=== PATIENT | male | born 1975 | race Caucasian/White ===

== ENCOUNTER 2017-11-06 05:48 | Emergency (ER) | payer SELFPAY ==
[2017-11-06 05:49] VITALS: BP 134/100; PULSE 83; RESP 18; TEMP 36.7; O2SAT 98; BMI 16.2
--- NOTE | 2017-11-06 06:00 | ED.VISSUMM ---
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 Patient states his symptoms began on Sunday. He states he had some chills and sweats. He became nauseated and had a few bouts of vomiting. He states since then has begun to have some loose watery diarrhea. He states he went to work last night. 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 He states because of his diarrhea, he was sent home and told to be evaluated in the emergency department. He states his fevers have resolved. He really has no abdominal pain. He denies any history of Crohn's disease or ulcerative colitis. He has taken Pepto-Bismol with little improvement. Physical Examination: Vital signs reviewed General: Well-nourished, well-developed Head: Normocephalic, atraumatic Eyes: Pupils equal and reactive, extraocular muscles intact Neck, supple, no lymphadenopathy Heart: Regular rate and rhythm Respiratory: No distress, clear bilaterally Abdomen: Soft, nontender, nondistended, no peritoneal signs Back: Nontender Extremities: Nontender, no edema, no cords Skin: Normal color no rash Neuro: Alert and oriented, no focal or lateralizing deficits Test Results: [] Emergency Department Course and Treatment: The patient has a benign abdomen. He has normal vital signs. He does admit to symptoms of gastroenteritis. I do not feel radiology or labs are necessary. Patient was treated with Imodium here. He will be dispensed both Imodium and Zofran for home for symptom control. As he does work in a food service technician industry, I will write him off work for 48 hours. The patient will be discharged home, return with any worsening symptoms. Treatment Plan: [] Disposition: Discharge Impression:. Gastroenteritis This note was generated with [employer] dictation software. It may contain incorrect words, spelling, and punctuation that were not noted in review of the chart prior to signing ED Disposition - Plan for ED Patient: Chief Complaint: General Illness Instructions: ED Food Poison Or Gastroenteritis Prescriptions: Loperamide [Imodium] 2 mg PO Q2H PRN PRN #30 cap PRN Reason: Diarrhea Ondansetron [Zofran Odt] 4 mg PO Q8H PRN PRN #10 tab PRN Reason: Nausea Referrals: Care Physician,No Primary [Primary Care Provider] -
[2017-11-06] MEDS: Loperamide 2 MG Capsule 4 MG PO (06:08)
[2017-11-06 06:09] VITALS: RESP 16
== END 2017-11-06 06:10 | disposition home or self-care (01) ==
LOC: ED 06:03
PROVIDERS: Emergency Provider Emergency Medicine
DX: K52.9 Noninfective gastroenteritis and colitis, unspecified (principal); Z72.0 Tobacco use
CPT/HCPCS: 99283

== ENCOUNTER 2021-10-05 03:05 | Emergency (ER) | payer SELFPAY ==
[2021-10-05 03:06] VITALS: BP 134/92; PULSE 108; RESP 18; TEMP 36.8; O2SAT 97; BMI 16.1
[2021-10-05] MEDS: Ondansetron 4 MG/2 ML Vial IV (03:51)
[2021-10-05] MEDS: 0.9% Normal Saline 1,000 ML 999 ML IV ×2 (03:51→04:59)
[2021-10-05] MEDS: Ketorolac 30 MG/ML Syringe IV (03:52)
[2021-10-05 03:55] LABS: Absolute Lymphocyte Count 1.15 X10^3/uL (0.83-4.51); Absolute Neutrophil Count 7.2 X10^3/uL (2.0-7.7); Basophil# 0.04 X10^3/uL; Basophil% 0.4 % (0-1); Hematocrit 43.9 % (40-54); Hemoglobin 15.3 g/dL (13.0-16.5); Lymphocyte # 1.15 X10^3/ul (0.83-4.51); Lymphocyte % 12.6 % (19-41); Mean Corp Hgb Conc 34.9 g/dL (32-36); Mean Corpuscular Hgb 32.3 pg (27.0-32.0); Mean Corpuscular Volume 92.6 fL (80-94); Mean Platelet Vol. 10.2 fl (6.2-12.0); Monocyte# 0.67 X10^3/uL; Monocyte% 7.4 % (0-10); NRBC Flagged by Analyzer 0 % (0-5); Neutrophil # 7.22 X10^3/uL (2.7-7.7); Neutrophil % 79.4 % (47-70); Platelet Count 271 K/mm3 (150-450); RBC Distribution Width CV 12.5 % (11.6-14.6); RBC Distribution Width SD 42.6 fl (35.1-43.9); Red Blood Count 4.74 M/mm3 (4.6-6.2); White Blood Count 9.1 K/mm3 (4.4-11.0)
--- NOTE | 2021-10-05 04:17 | EX.ED.DYSGE1 ---
HPI History of Present Illness Chief Complaint: Abd Pain Narrative Narrative: Patient is a 46-year-old male who states he has had 2 to 3 days of increasing generalized abdominal pain with bouts of loose stool/diarrhea. He denies any known sick contacts or travel outside the country or recent antibiotic use. He states that this evening he felt the pain was more intense than it has been and that the diarrhea is continue to worsen and secondary to this comes to the hospital for evaluation [facility] Medical History no medical history Home Medications dicyclomine 20 mg PO 4X/DAY PRN PRN 7 Days #28 tab 10/05/21 [Rx Last Taken Unknown] ondansetron 4 mg PO Q8H PRN 7 Days #21 tab 10/05/21 [Rx Last Taken Unknown] Allergy/AdvReac Type Severity Reaction Status Date / Time No Known Allergies Allergy Verified 10/05/21 03:08 Social History Smoking Status: Current every day smoker tobacco type: cigarettes ROS ROS ED Constitutional Constitutional ED: Denies chills or fever(s) ENT ENT ED: Denies sore throat Cardiovascular Cardiovascular: Denies chest pain Respiratory/Chest Respiratory/Chest: Denies cough or dyspnea Gastrointestinal Gastrointestinal: Reports abdominal pain, diarrhea, nausea and vomiting Genitourinary Genitourinary ED: Denies dysuria or hematuria Musculoskeletal Musculoskeletal: Reports myalgias Integumentary Denies rash Neurologic Neurologic: Denies headache(s) Hematologic/Lymphatic Hematologic/Lymphatic: Denies easy bleeding or easy bruising EXAM Physical Exam Const Vital Signs: 10/05/21 03:06 Temperature 98.2 F Temperature Source Temporal Pulse Rate 108 H Respiratory Rate 18 Blood Pressure 134/92 H Blood Pressure Mean 106 Pulse Ox 97 Oxygen Delivery Method Room Air Positive well nourished and well developed General Appearance ED: well developed HEENT Reports dry mucous membranes Mouth ED: Yes dry mucous membranes Mouth: dry mucous membranes Eyes PERRL and EOMs intact bilaterally Neck supple Resp normal respiratory effort and clear to auscultation bilaterally Cardio regular rate and regular rhythm Rate: other Other Details: Radial pulses are plus 2 out of 4 bilaterally are equal and symmetric GI non-distended GI Narrative: Abdomen is soft and nondistended with hyperactive bowel sounds. There is mild diffuse pain on palpation which is greatest in the lower abdomen but no voluntary guarding or rigidity. No pulsatile mass Palpation: soft Back/Spine no CVA tenderness Extremity normal to inspection Neuro oriented x3 and CN's II-XII intact bilaterally Sensorium / Orientation: alert Motor Exam: strength 5/5 throughout Psych mental status grossly normal Skin no rashes or lesions noted MDM MDM MDM Narrative Medical decision making narrative: Patient presented to the ER afebrile with a soft nonsurgical abdomen so I felt no need for a CT scan. Clinically has a history and exam concerning for mild dehydration as well as possible Covid so I did elect to perform basic laboratory studies and a Covid swab. Covid swab was negative. White blood cell count is normal without left shift. Kidney function is slightly elevated from previous value consistent with mild dehydration but no signs of acute kidney injury. Patient had no bouts of diarrhea while in the ER and he was hydrated with 2 L of fluid. On reevaluation he is resting comfortably and his abdomen remains soft and nonsurgical. Therefore he will be placed on symptomatic medications and will be discharged home at this time Lab Data Attestation: I reviewed the patient's lab results. Labs: Laboratory Results - last 24 hr 10/05/21 10/05/21 03:46 03:46 WBC 9.1 RBC 4.74 Hgb 15.3 Hct 43.9 MCV 92.6 MCH 32.3 H MCHC 34.9 RDW Std Deviation 42.6 RDW Coeff of Nick 12.5 Plt Count 271 MPV 10.2 Immature Gran % (Auto) 0.200 Neut % (Auto) 79.4 H Lymph % (Auto) 12.6 L [place] % (Auto) 7.4 Eos % (Auto) 0.0 Baso % (Auto) 0.4 Absolute Neuts (auto) 7.2 Absolute Lymphs (auto) 1.15 Nucleated RBC % 0 Sodium 136 Potassium 3.7 Chloride 103 Carbon Dioxide 20.0 L Anion Gap 13 BUN 19 H Creatinine 1.17 Estim Creat Clear Calc 58.23 Est GFR (MDRD) Af Amer 87 Est GFR (MDRD) Non-Af 72 BUN/Creatinine Ratio 16.2 Glucose 91 Calcium 9.1 Total Bilirubin 0.50 Direct Bilirubin 0.17 AST 21 ALT TNP Alkaline Phosphatase 71 Total Protein 7.7 Albumin 4.1 Globulin 3.6 Lipase 29 L Discharge Plan Triage Chief Complaint: Abd Pain ED Provider: Silvano Walton Dx/Rx/DC Orders Clinical Impression: Generalized abdominal pain, Diarrhea, Mild dehydration Instructions: Abdominal Pain, Dehydration Prescriptions: New ondansetron 4 mg tablet,disintegrating 4 mg PO Q8H PRN (Reason: nausea and vomiting) 7 Days Qty: 21 RF: 0 dicyclomine 20 mg tablet 20 mg PO 4X/DAY PRN PRN (Reason: abdominal discomfort) 7 Days Qty: 28 RF: 0 Stand Alone Forms: ED Work / School Excuse Primary Care Provider: Care Physician,No Primary Referrals: Antonio Munoz MD [STAFF PHYSICIAN] - 1 Week if not improving Care Physician,No Primary [Primary Care Provider] - Disposition Disposition: Home, Self Care
[2021-10-05 05:08] LABS: AST(SGOT) 21 U/L (15-37); Albumin, Serum 4.1 g/dL (3.2-5.0); Alkaline Phosphatase 71 U/L (45-117); Anion Gap 13 (5-15); BUN 19 mg/dL (7-18); BUN/Creat Ratio 16.2 RATIO (10-20); Bilirubin, Direct 0.17 mg/dL (0.00-0.30); Calcium,Total 9.1 mg/dL (8.5-10.1); Chloride 103 mmol/L (98-107); Creatinine, Serum 1.17 mg/dL (0.70-1.30); EST Glomerular Filtration Rate 72 mL/min (>60); Est Glom Filt Rate - Afr Amer 87 mL/min (>60); Estimated Creatinine Clearance 58.23 ml/min; Globulin 3.6 g/dL (2.2-4.2); Glucose 91 mg/dL (74-106); Lipase 29 U/L (73-393); Potassium 3.7 mmol/L (3.5-5.1); Protein, Total 7.7 g/dL (6.4-8.2); Sodium Level 136 mmol/L (136-145)
[2021-10-05 05:42] VITALS: RESP 16
[2021-10-05 07:56] LABS: Alanine Aminotransfer ALT/SGPT 32 U/L (16-61)
== END 2021-10-05 05:46 | disposition home or self-care (01) ==
PROVIDERS: Emergency Provider Emergency Medicine; Visit Provider Emergency Medicine
DX: R10.84 Generalized abdominal pain (principal); R19.7 Diarrhea, unspecified; E86.0 Dehydration; F17.210 Nicotine dependence, cigarettes, uncomplicated
CPT/HCPCS: 80048; 80076; 83690; 85025; 87426; 96361; 96374; 96375; 99283; J7030; A4216; J2405

== ENCOUNTER 2021-10-10 01:55 | Emergency (ER) | payer SELFPAY ==
[2021-10-10 01:57] VITALS: BP 146/95; PULSE 80; RESP 18; TEMP 37.2; O2SAT 98; BMI 16.4
--- NOTE | 2021-10-10 02:21 | CT_ITS ---
STUDY: CT ABDOMEN AND PELVIS WITH CONTRAST REASON FOR EXAM: Male, 46 years old. Abdominal pain -- IV PO Contrast RADIATION DOSAGE (If Supplied By Facility): CTDIvol = ( 10.00 ) mGy, DLP = ( 345.04 ) mGycm TECHNIQUE: Transaxial images were obtained from the dome of the diaphragm to the symphysis pubis with oral contrast. Oral and amp;amp; IV Gastrografin and amp;amp; 100mL Isovue-370 was administered. Sagittal and coronal images were reconstructed. Individualized dose optimization techniques were used for this CT. COMPARISON: None. FINDINGS: The visualized lung bases are unremarkable. The visualized portions of the heart are within normal limits. Likely focal fatty infiltration in the liver adjacent to the falciform ligament. Normal gallbladder and extrahepatic biliary system. Normal spleen. Normal pancreas. Normal bilateral adrenal glands. Normal right kidney. There is left renal focal cortical thinning. Normal visualized stomach. Normal small intestine. Mild circumferential thickening of the descending and sigmoid colon likely accentuated by nondistention. The appendix is visualized and appears normal. Normal abdominal aorta. Normal inferior vena cava. Normal retroperitoneum. Normal urinary bladder. Normal abdominal wall. Normal osseous structures. CT/Abdomen/Pelvis WITH Contrast IMPRESSION: Mild circumferential thickening of the descending and sigmoid colon likely accentuated by nondistention. Correlate for colitis otherwise Negative enhanced CT of the abdomen and pelvis for acute abnormality. Electronically Signed: Jason Meadows MD at 4:39 EST ,
--- NOTE | 2021-10-10 02:22 | EDS_ITS ---
HPI HPI - GI History of Present Illness Chief Complaint: Abd Pain Informant: patient Abdominal Pain/Flank Pain Onset: Days (5) Context: Gradual Onset Timing: Continuous Quality: Cramping and Sharp Location: Diffuse Worsened by: Nothing Relieved by: Nothing Nausea/Vomiting/Emesis GI Symptom: Positive for Nausea; Negative for Vomiting Diarrhea/Melena/Hematochezia GI Symptom: Positive for Diarrhea Stool Quality: Positive for Watery; Negative for Black, Maroon and BRB per rectum Associated Symptoms Associated Symptoms: Negative for Dysuria, Frequency and Hematuria Narrative Narrative: Patient presents with abdominal pain that has gotten worse tonight. Patient was seen here 5 days ago for the same pain. Patient had normal labs done at that time. Patient was given prescriptions for Zofran and Bentyl. Patient states the Bentyl helps for approximately 1 hour and then his pain is back. Patient states he is also been using [id number] medications with minimal relief. Patient denies any vomiting. Patient does admit to some watery diarrhea. Patient denies any maroon or black stools. Patient denies any dysuria or hematuria. Patient admits to subjective fevers [facility] Medical History (Updated 10/10/21 @ 04:[address] Husam Melchor DO) Pneumothorax, left Home Medications dicyclomine 20 mg PO 4X/DAY PRN PRN 7 Days #28 tab 10/05/21 [Rx Last Taken Unknown] ondansetron 4 mg PO Q8H PRN 7 Days #21 tab 10/05/21 [Rx Last Taken Unknown] amoxicillin-pot clavulanate 875 mg PO Q12H #20 tablet 10/10/21 [Rx Last Taken Unknown] Allergy/AdvReac Type Severity Reaction Status Date / Time No Known Allergies Allergy Verified 10/05/21 03:08 Social History Smoking Status: Current every day smoker tobacco type: cigarettes ROS ROS ED Constitutional Constitutional ED: Reports fever(s) and subjective; Denies chills Eyes Eyes: Denies blurry vision or change in vision ENT ENT ED: Denies rhinorrhea or sore throat Cardiovascular Cardiovascular: Reports chest pain; Denies palpitations Respiratory/Chest Respiratory/Chest: Denies cough or dyspnea Gastrointestinal Gastrointestinal: Reports abdominal pain, diarrhea and nausea; Denies vomiting Genitourinary Genitourinary ED: Denies dysuria or hematuria Musculoskeletal Musculoskeletal: Reports neck pain; Denies back pain Integumentary Denies abscess or rash Neurologic Neurologic: Denies headache(s) or weakness Allergic/Immunologic Allergic/Immunologic ED: Denies mouth swelling or urticaria EXAM Physical Exam Const Vital Signs: 10/10/21 01:57 10/10/21 02:33 Temperature 99 F Temperature Source Temporal Pulse Rate 80 72 Respiratory Rate 18 18 Blood Pressure 146/95 H Blood Pressure Mean 112 Pulse Ox 98 98 Oxygen Delivery Method Room Air Room Air Positive well nourished and well developed General Appearance ED: well developed HEENT Reports moist mucous membranes Neck supple and no JVD Resp normal respiratory effort and clear to auscultation bilaterally Cardio regular rate, regular rhythm and no murmurs GI normal to inspection, nondistended, normoactive bowel sounds Palpation: soft and tender epigastric, LLQ, RLQ, LUQ, RUQ, periumbilical and suprapubic; Negative for guarding or rebound tenderness present Extremity normal to inspection General Extremety ED: Negative for edema or tenderness General Extremity: Negative for edema Neuro oriented x3, CN's II-XII intact bilaterally and no sensory deficits noted Sensorium / Orientation: alert Motor Exam: strength 5/5 throughout Psych mental status grossly normal Skin no rashes or lesions noted MDM MDM MDM Narrative Medical decision making narrative: Patient was given IV fluids, morphine, and Zofran here. CBC was within normal limits. Comprehensive metabolic profile showed a mild hypokalemia 3.1. Lipase was normal. Urinalysis does not show any evidence of urinary tract infection. CT scan of the abdomen and pelvis was obtained. There is mild circumferential thickening of the descending and sigmoid colon. There is questionable colitis noted in this area. This was interpreted by the radiologist and reviewed by myself. Patient was advised of his findings. Patient was given a prescription for Augmentin. Patient was instructed continue the Bentyl and Zofran as needed. Patient was instructed to follow-up with his primary care physician in 5 to 7 days. Patient understood and was agreeable with the plan. All questions were answered. Lab Data Attestation: I reviewed the patient's lab results. Labs: Laboratory Results - last 24 hr 10/10/21 10/10/21 10/10/21 02:25 02:25 03:38 WBC 7.7 RBC 4.37 L Hgb 14.0 Hct 39.8 L MCV 91.1 MCH 32.0 MCHC 35.2 RDW Std Deviation 41.1 RDW Coeff of Nick 12.4 Plt Count 262 MPV 10.3 Immature Gran % (Auto) 0.400 Neut % (Auto) 75.4 H Lymph % (Auto) 15.7 L [place] % (Auto) 7.8 Eos % (Auto) 0.3 Baso % (Auto) 0.4 Absolute Neuts (auto) 5.8 Absolute Lymphs (auto) 1.21 Nucleated RBC % 0 Sodium 140 Potassium 3.1 L Chloride 108 H Carbon Dioxide 22.0 Anion Gap 10 BUN 6 L Creatinine 0.99 Estim Creat Clear Calc 69.90 Est GFR (MDRD) Af Amer 106 Est GFR (MDRD) Non-Af 87 BUN/Creatinine Ratio 6.1 L Glucose 143 H Calcium 8.6 Total Bilirubin 0.50 AST 16 ALT 29 Alkaline Phosphatase 59 Total Protein 6.8 Albumin 3.6 Globulin 3.2 Albumin/Globulin Ratio 1.1 Lipase 33 L Urine Color Yellow Urine Clarity Clear Urine pH 7.0 Ur Specific [place] 1.005 Urine Protein Negative Urine Glucose (UA) Normal Urine Ketones 15 H Urine Occult Blood 10 H Urine Nitrite Negative Urine Bilirubin Negative Urine Urobilinogen Normal Ur Leukocyte Esterase Negative Urine RBC 0-5 SEEN Urine WBC 0 SEEN Ur Squamous Epith Cells 0 SEEN Urine Bacteria 0 SEEN Urine Mucus 0 SEEN Radiography Diagnostic Testing: Clinical Impression(s) from Imaging Studies Abdomen/Pelvis CT 10/10/21 02:21 IMPRESSION: Mild circumferential thickening of the descending and sigmoid colon likely accentuated by nondistention. Correlate for colitis otherwise Negative enhanced CT of the abdomen and pelvis for acute abnormality. Electronically Signed: Jason Meadows MD at 4:39 EST , Discharge Plan Triage Chief Complaint: Abd Pain ED Provider: Husam Melchor Dx/Rx/DC Orders Clinical Impression: Colitis Instructions: ED Understanding Colitis Prescriptions: New amoxicillin-pot clavulanate [amoxicillin-pot clavulanate] 875 MG tablet 875 mg PO Q12H Qty: 20 RF: 0 No Action ondansetron 4 mg tablet,disintegrating 4 mg PO Q8H PRN (Reason: nausea and vomiting) 7 Days Qty: 21 RF: 0 dicyclomine 20 mg tablet 20 mg PO 4X/DAY PRN PRN (Reason: abdominal discomfort) 7 Days Qty: 28 RF: 0 Primary Care Provider: Care Physician,No Primary Referrals: Husam Munoz MD [STAFF PHYSICIAN] - None Becka Uribe [NON-STAFF] - 5-7 Days Care Physician,No Primary [Primary Care Provider] - Disposition Disposition: Home, Self Care
[2021-10-10] MEDS: Morphine 4 MG/ML Syringe IV (02:30)
[2021-10-10] MEDS: 0.9% Normal Saline 1,000 ML 1000 ML IV (02:30)
[2021-10-10] MEDS: Ondansetron 4 MG/2 ML Vial IV (02:30)
[2021-10-10 02:33] VITALS: PULSE 72; RESP 18; O2SAT 98
[2021-10-10 02:37] LABS: Absolute Lymphocyte Count 1.21 X10^3/uL (0.83-4.51); Absolute Neutrophil Count 5.8 X10^3/uL (2.0-7.7); Basophil# 0.03 X10^3/uL; Basophil% 0.4 % (0-1); Eosinophil# 0.02 X10^3/uL; Eosinophils% 0.3 % (0-5); Hematocrit 39.8 % (40-54); Lymphocyte # 1.21 X10^3/ul (0.83-4.51); Lymphocyte % 15.7 % (19-41); Mean Corp Hgb Conc 35.2 g/dL (32-36); Mean Corpuscular Volume 91.1 fL (80-94); Mean Platelet Vol. 10.3 fl (6.2-12.0); Monocyte% 7.8 % (0-10); NRBC Flagged by Analyzer 0 % (0-5); Neutrophil # 5.84 X10^3/uL (2.7-7.7); Neutrophil % 75.4 % (47-70); Platelet Count 262 K/mm3 (150-450); RBC Distribution Width CV 12.4 % (11.6-14.6); RBC Distribution Width SD 41.1 fl (35.1-43.9); Red Blood Count 4.37 M/mm3 (4.6-6.2); White Blood Count 7.7 K/mm3 (4.4-11.0)
[2021-10-10 02:52] LABS: ALB/GLOB Ratio 1.1 RATIO (0.9-2.4); AST(SGOT) 16 U/L (15-37); Alanine Aminotransfer ALT/SGPT 29 U/L (16-61); Albumin, Serum 3.6 g/dL (3.2-5.0); Alkaline Phosphatase 59 U/L (45-117); Anion Gap 10 (5-15); BUN 6 mg/dL (7-18); BUN/Creat Ratio 6.1 RATIO (10-20); Calcium,Total 8.6 mg/dL (8.5-10.1); Chloride 108 mmol/L (98-107); Creatinine, Serum 0.99 mg/dL (0.70-1.30); EST Glomerular Filtration Rate 87 mL/min (>60); Est Glom Filt Rate - Afr Amer 106 mL/min (>60); Globulin 3.2 g/dL (2.2-4.2); Glucose 143 mg/dL (74-106); Lipase 33 U/L (73-393); Potassium 3.1 mmol/L (3.5-5.1); Protein, Total 6.8 g/dL (6.4-8.2); Sodium Level 140 mmol/L (136-145)
[2021-10-10 03:46] LABS: Bacteria 0 SEEN /hpf (None Seen); Mucous, Urine 0 SEEN /hpf (<or=2+); Squamous Epithelial Cells - UA 0 SEEN /hpf (0-5); White Blood Cells 0 SEEN /hpf (0-5)
[2021-10-10 03:50] LABS: Color, Urine Yellow (Yellow); Glucose, Dipstick Normal (Normal); Ketone-Dipstick 15 mg/dl (Negative); Leukocyte Esterase-Dipstick Negative /ul (Negative); Nitrite-Dipstick Negative (Negative); Occult Blood-Urine 10 /ul (Negative); Protein-Dipstick Negative (Negative); Specific Gravity, Urine 1.005 (1.002-1.030); Urine Bilirubin Dipstick Negative (Negative); Urine Clarity Clear (Clear); Urine Urobilinogen Normal (Normal)
[2021-10-10 04:01] LABS: Red Blood Cells-Urine 0-5 SEEN /hpf (0-5)
[2021-10-10] MEDS: Potassium Chloride Oral Tablet 20 MEQ 40 MEQ PO (04:25)
[2021-10-10 05:02] VITALS: BP 122/78; PULSE 58; RESP 18; O2SAT 98
[2021-10-10] MEDS: Amox/Clavulanate 875 MG Tablet PO (05:02)
== END 2021-10-10 05:03 | disposition home or self-care (01) ==
PROVIDERS: Emergency Provider Emergency Medicine; Visit Provider Emergency Medicine
DX: K52.9 Noninfective gastroenteritis and colitis, unspecified (principal); F17.210 Nicotine dependence, cigarettes, uncomplicated; E87.6 Hypokalemia
CPT/HCPCS: 74177; 80053; 81001; 83690; 85025; 96361; 96374; 96375; 99284; J7030; Q9967; A4216; J2405

== ENCOUNTER 2022-03-20 09:17 | Emergency (ER) | payer SELFPAY ==
[2022-03-20 09:19] VITALS: BP 127/88; PULSE 79; RESP 14; TEMP 35.6; O2SAT 97; BMI 17.2
--- NOTE | 2022-03-20 09:47 | EKG12_ITS ---
Test Reason : cp Blood Pressure : / mmHG Vent. Rate : 073 BPM Atrial Rate : 073 BPM P-R Int : 110 ms QRS Dur : 090 ms QT Int : 384 ms P-R-T Axes : 083 085 065 degrees QTc Int : 423 ms Sinus rhythm with sinus arrhythmia with short MD Otherwise normal ECG Confirmed by MURIEL STEVENS, OTONIEL ([id number]), avid editor OTTO GONZALES ([id number]) on 03/21/2022 8:39:29 AM Referred By: Confirmed By:OTONIEL LLAMAS MD
--- NOTE | 2022-03-20 09:48 | EDS_ITS ---
HPI History of Present Illness Chief Complaint: Chest Pain Informant: patient Onset/Context/Timing Onset: Days (2-3) Activity at onset: gradual and onset Timing: Intermittent and Lasts (Several minutes, this morning has persisted longer but not as bad now) Quality: Positive for Pain Location: Left Chest (And in the left anterior shoulder some) Current Severity: Mild Maximum Severity: Moderate Worsened By: Nothing Relieved By: Nothing Associated Symptoms: Negative for Nausea, Vomiting, Diaphoresis, Dyspnea, Cough, Fever, Lightheadedness or Palpitations Narrative Narrative: Intermittent left upper chest pain for the last couple days, worse and more persistent this morning though. He states it is let up since then and is not as bad now but he states he can push on it and make it worse in his left upper chest. He denies any strenuous activity or heavy lifting that could account for a muscle strain. 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 [facility] Medical History Pneumothorax, left Home Medications omeprazole 20 mg capsule,delayed release 20 mg PO DAILY 03/20/22 [History Last Taken Unknown] Allergy/AdvReac Type Severity Reaction Status Date / Time amoxicillin AdvReac Upset Verified 03/20/22 09:19 Stomach Social History Smoking Status: Current every day smoker tobacco type: cigarettes ROS ROS ED Constitutional Constitutional ED: Denies chills or fever(s) Eyes Eyes: Denies change in vision or diplopia ENT ENT ED: Denies rhinorrhea or sore throat Cardiovascular Cardiovascular: Reports chest pain; Denies palpitations Respiratory/Chest Respiratory/Chest: Denies cough or dyspnea Gastrointestinal Gastrointestinal: Denies abdominal pain, diarrhea, nausea or vomiting Genitourinary Genitourinary ED: Denies dysuria or hematuria Musculoskeletal Musculoskeletal: Reports extremity pain; Denies back pain or neck pain Integumentary Denies abscess or rash Neurologic Neurologic: Denies headache(s), paresthesias or weakness Psychiatric Psychiatric: Denies anxiety or suicidal thoughts EXAM Physical Exam Const Vital Signs: 03/20/22 09:19 03/20/22 09:21 03/20/22 09:47 Temperature 96.0 F L Temperature Source Oral Pulse Rate 79 Respiratory Rate 14 Respiratory Effort Normal Blood Pressure 127/88 H Blood Pressure Mean 101 Pulse Ox 97 Oxygen Delivery Method Room Air Room Air Positive well nourished and well developed General Appearance ED: well developed and NAD HEENT Reports moist mucous membranes normocephalic and atraumatic Eyes PERRL and EOMs intact bilaterally Neck full ROM and supple Resp normal respiratory effort and clear to auscultation bilaterally Cardio regular rate, regular rhythm and no murmurs GI non-tender and non-distended Auscultation: normoactive bowel sounds Palpation: soft Back/Spine no CVA tenderness General Back: other FROM Extremity normal to inspection General Extremety ED: Negative for edema, pulses abnormal or tenderness General Extremity: Negative for edema or pulses abnormal Neuro oriented x3, CN's II-XII intact bilaterally and no sensory deficits noted Sensorium / Orientation: awake and alert Motor Exam: strength 5/5 throughout Skin no rashes or lesions noted and no wounds Heart Score History: Slightly/Non-Suspicious ECG: Normal Age: </= 45 years Risk Factors: 1 or 2 Risk Factors Troponin: </= Normal Limit Score: 1 MDM MDM MDM Narrative Medical decision making narrative: Patient's work-up is completely normal. His PERC score is 0 so he does not require any further work-up to rule out pulmonary embolus as cause of these acut e symptoms at this time. He was given Toradol and a GI cocktail, he had some mild improvement of his pain but it was still present. I think this is nothing dangerous, stable for discharge home I recommend ibuprofen in the meantime and if the pain persist for longer than the next 5 to 7 days to follow-up with his doctor. States he does not have 1 so he was referred to the next doctor on the unassigned list. Lab Data Attestation: I reviewed the patient's lab results. Labs: Laboratory Results - last 24 hr 03/20/22 03/20/22 09:30 09:30 WBC 8.6 RBC 5.00 Hgb 16.1 Hct 46.1 MCV 92.2 MCH 32.2 H MCHC 34.9 RDW Std Deviation 42.0 RDW Coeff of Nick 12.4 Plt Count 272 MPV 10.4 Immature Gran % (Auto) 0.200 Neut % (Auto) 61.2 Lymph % (Auto) 31.4 [place] % (Auto) 6.4 Eos % (Auto) 0.2 Baso % (Auto) 0.6 Absolute Neuts (auto) 5.3 Absolute Lymphs (auto) 2.71 Nucleated RBC % 0 Sodium 138 Potassium 3.5 Chloride 104 Carbon Dioxide 25.0 Anion Gap 9 BUN 12 Creatinine 1.06 Estim Creat Clear Calc 67.59 Est GFR (MDRD) Af Amer 97 Est GFR (MDRD) Non-Af 80 BUN/Creatinine Ratio 11.3 Glucose 102 Calcium 9.7 Troponin I High Sens 4 Radiography Chest X-Ray - ED: 1 View, Read by ED Physician and No Acute Disease Diagnostic Testing: Clinical Impression(s) from Imaging Studies Chest X-Ray 03/20/22 10:03 IMPRESSION: Hyperinflation. Stable scarring at the lung apices. Electronically Signed: Fabiano Tilley MD at 10:43 EDT , Rhythm Strip Rhythm Strip: Sinus Rhythm Rate: 70 Ectopy: None EKG Initial EKG: Attestation: I personally reviewed and interpreted this EKG as follows: Interpretation: Sinus Rhythm and No Acute Injury Pattern Comments: Normal EKG Discharge Plan Triage Chief Complaint: Chest Pain ED Provider: Joseph Iverson Dx/Rx/DC Orders Clinical Impression: Left-sided chest pain Instructions: ED Chest Pain, Uncertain Cause Prescriptions: No Action omeprazole [Prilosec] 20 mg Capsule,Delayed Release(Dr/Ec) 20 mg PO DAILY Primary Care Provider: Care Physician,No Primary Referrals: Derek Franco MD [STAFF PHYSICIAN] - 1 Week if not improving Care Physician,No Primary [Primary Care Provider] - Disposition Disposition: Home, Self Care
[2022-03-20] MEDS: Ketorolac 30 MG/ML Syringe IV (09:57)
[2022-03-20] MEDS: Mag Hydrox/Al Hydrox/Simeth 30 ML UDC PO (09:57)
[2022-03-20 09:58] LABS: Absolute Lymphocyte Count 2.71 X10^3/uL (0.83-4.51); Absolute Neutrophil Count 5.3 X10^3/uL (2.0-7.7); Basophil# 0.05 X10^3/uL; Basophil% 0.6 % (0-1); Eosinophil# 0.02 X10^3/uL; Eosinophils% 0.2 % (0-5); Hematocrit 46.1 % (40-54); Hemoglobin 16.1 g/dL (13.0-16.5); Lymphocyte # 2.71 X10^3/ul (0.83-4.51); Lymphocyte % 31.4 % (19-41); Mean Corp Hgb Conc 34.9 g/dL (32-36); Mean Corpuscular Hgb 32.2 pg (27.0-32.0); Mean Corpuscular Volume 92.2 fL (80-94); Mean Platelet Vol. 10.4 fl (6.2-12.0); Monocyte# 0.55 X10^3/uL; Monocyte% 6.4 % (0-10); NRBC Flagged by Analyzer 0 % (0-5); Neutrophil # 5.29 X10^3/uL (2.7-7.7); Neutrophil % 61.2 % (47-70); Platelet Count 272 K/mm3 (150-450); RBC Distribution Width CV 12.4 % (11.6-14.6); White Blood Count 8.6 K/mm3 (4.4-11.0)
--- NOTE | 2022-03-20 10:03 | RAD_ITS ---
STUDY: X-RAY CHEST REASON FOR EXAM: Male, 47 years old. Chest pain TECHNIQUE: Single AP portable view of the chest. COMPARISON: Comparison is made with prior study of 10/27/2016. FINDINGS: EKG electrodes are seen. There is hyperinflation of the lungs consistent with chronic obstructive lung disease (COPD). Stable scarring at the lung apices. There is no demonstrated pleural abnormality. Normal size heart. Normal mediastinum and natalie. Normal visualized pulmonary arteries. Normal visualized aortic arch and descending thoracic aorta. Normal visualized thoracic spine. Normal visualized ribs, clavicles, and shoulders. There is no demonstrated abnormality of the visualized soft tissue structures of the upper abdomen. RAD/Chest 1 View (Portable) IMPRESSION: Hyperinflation. Stable scarring at the lung apices. Electronically Signed: Fabiano Tilley MD at 10:43 EDT ,
[2022-03-20 10:15] LABS: Anion Gap 9 (5-15); BUN 12 mg/dL (7-18); BUN/Creat Ratio 11.3 RATIO (10-20); Calcium,Total 9.7 mg/dL (8.5-10.1); Chloride 104 mmol/L (98-107); Creatinine, Serum 1.06 mg/dL (0.70-1.30); EST Glomerular Filtration Rate 80 mL/min (>60); Est Glom Filt Rate - Afr Amer 97 mL/min (>60); Estimated Creatinine Clearance 67.59 ml/min; Glucose 102 mg/dL (74-106); Potassium 3.5 mmol/L (3.5-5.1); Sodium Level 138 mmol/L (136-145); Troponin-I HS (w/2H Reflex) 4 pg/mL (3.0-78.0)
[2022-03-20 11:51] LABS: Reflex Troponin-HS? (from REC) Y
== END 2022-03-20 11:23 | disposition home or self-care (01) ==
PROVIDERS: Emergency Provider Emergency Medicine; Visit Provider Emergency Medicine
DX: R07.9 Chest pain, unspecified (principal); F17.210 Nicotine dependence, cigarettes, uncomplicated
CPT/HCPCS: 71045; 80048; 84484; 85025; 93005; 96374; 99284; A4216

== ENCOUNTER 2022-04-20 23:03 | Emergency (ER) | payer SELFPAY ==
[2022-04-20 23:04] VITALS: BP 127/88; PULSE 91; RESP 15; TEMP 36.6; O2SAT 94; BMI 16.9
--- NOTE | 2022-04-20 23:22 | CT_ITS ---
STUDY: CT ABDOMEN AND PELVIS WITH CONTRAST ENHANCEMENT 23RD 47 HOURS ON 04/20/2022 REASON FOR EXAM: 47-year-old male with abdominal pain. RADIATION DOSAGE (If Supplied By Facility): CTDIvol = ( 7.56 ) mGy, DLP = ( 256.56 ) mGycm. TECHNIQUE: Transaxial images were obtained from the dome of the diaphragm to the symphysis pubis without oral contrast. 100 cc of Isovue-370 was administered intravenously. Sagittal and coronal images were reconstructed. Individualized dose optimization techniques were used for this CT. COMPARISON: 10/10/2021, with a questionable colitis of the sigmoid colon. FINDINGS: The visualized lung bases are unremarkable. The visualized portions of the heart are within normal limits. Normal liver. There is a small amount of fluid at surrounding the lateral and anterior aspect of the liver. Normal gallbladder and extrahepatic biliary system; no cholelithiasis or cholecystitis.. Normal spleen. Normal pancreas; no pancreatitis or pancreatic mass lesions.. Normal kidneys without pyelonephritis or obstructive uropathy. Normal right kidney. Normal left kidney. Normal visualized stomach. Normal small intestine. No diverticulitis, colitis, intestinal obstruction. The appendix is visualized and appears normal; no appendicitis. Appendix best visualized on axial images. 79 through 82. Normal abdominal aorta. Normal inferior vena cava. Normal retroperitoneum. No abscesses, mass lesions, or hernias. No free air. Normal and the urinary bladder. Normal abdominal wall. Normal osseous structures. CT/Abdomen/Pelvis W IV Cont ONLY IMPRESSION: 1. No appendicitis, diverticulitis, colitis, or intestinal obstruction. 2. No cholecystitis or pancreatitis. 3. Normal kidneys without pyelonephritis or mass lesions. 4. Normal liver surrounded by a small amount of fluid laterally and anteriorly. The amount of fluid is slightly increased since previous examination of 02/06/2021. 4. No abscesses, mass lesions, or hernias. Electronically Signed: Inderjit Gauthier MD at 0:42 EDT ,
--- NOTE | 2022-04-20 23:23 | EDS_ITS ---
HPI History of Present Illness Chief Complaint: Abd Pain Informant: patient Onset/Context/Timing Onset: Yesterday Context: Gradual Onset Timing: Waxes and wanes Current Severity: Moderate Maximum Severity: Moderate Narrative Narrative: Patient presents with lower abdominal pain along with nausea, vomiting, diarrhea. Patient states it feels similar to the bout of colitis he had in September of this year. He denies blood with the stool but states he does have some blood when he wipes he was a secondary to a small hemorrhoid. He has not had fever or chills. [facility] Medical History (Updated 04/21/22 @ 00:[address] Shannan Larsen MD) Pneumothorax, left Home Medications dicyclomine 20 mg tablet 20 mg PO TID PRN abdominal cramping #14 tabs 04/21/22 [Rx Last Taken Unknown] ondansetron 4 mg disintegrating tablet 4 mg PO Q8H PRN nausea and vomiting #10 tabs 04/21/22 [Rx Last Taken Unknown] Allergy/AdvReac Type Severity Reaction Status Date / Time amoxicillin AdvReac Upset Verified 04/20/22 23:08 Stomach Family History Father Diabetes Heart disease Hypertension Myocardial infarction Grandfather Diabetes Myocardial infarction Hypertension Heart disease Social History household members: none housing: apartment current occupational status: employed current occupation: [place] Smoking Status: Current some day smoker tobacco type: cigarettes how long ago did patient quit smokin days ago alcohol intake: former substance use type: marijuana what type of physical activity do you participate in: none ROS ROS ED Constitutional Constitutional ED: Denies chills or fever(s) Eyes Eyes: Denies change in vision or discharge from eye(s) ENT ENT ED: Denies discharge from eye(s), rhinorrhea or sore throat Cardiovascular Cardiovascular: Denies chest pain or palpitations Respiratory/Chest Respiratory/Chest: Denies cough or dyspnea Gastrointestinal Gastrointestinal: Reports abdominal pain, diarrhea, nausea and vomiting Genitourinary Genitourinary ED: Denies difficulty urinating or dysuria Musculoskeletal Musculoskeletal: Denies back pain or extremity pain Integumentary Denies Abrasions or rash Neurologic Neurologic: Denies headache(s) or weakness Psychiatric Psychiatric: Denies anxiety or depression Allergic/Immunologic Allergic/Immunologic ED: Denies lip swelling or urticaria EXAM Physical Exam Const Vital Signs: 04/20/22 23:04 Temperature 97.9 F Temperature Source Temporal Pulse Rate 91 Respiratory Rate 15 Blood Pressure 127/88 H Blood Pressure Mean 101 Pulse Ox 94 Oxygen Delivery Method Room Air Positive well nourished and well developed General Appearance ED: well developed HEENT Reports normocephalic and head/scalp atraumatic Eyes PERRL and EOMs intact bilaterally Neck supple Chest Wall inspection of chest normal and palpation of chest normal Resp normal respiratory effort and clear to auscultation bilaterally Cardio regular rate and regular rhythm GI Auscultation: hypoactive bowel sounds Palpation: soft and tender LLQ and suprapubic Extremity normal to inspection Neuro oriented x3 and no sensory deficits noted Sensorium / Orientation: alert Motor Exam: strength 5/5 throughout Psych mental status grossly normal Skin no rashes or lesions noted MDM MDM MDM Narrative Medical decision making narrative: Patient is given morphine and Zofran along with IV fluids. Lab work obtained along with CT scan of the abdomen pelvis with IV contrast. Lab Data Attestation: I reviewed the patient's lab results. Labs: Laboratory Results - last 24 hr 04/20/22 04/20/22 04/20/22 23:30 23:30 23:30 WBC 6.8 RBC 4.83 Hgb 15.8 Hct 44.7 MCV 92.5 MCH 32.7 H MCHC 35.3 RDW Std Deviation 43.6 RDW Coeff of Nick 12.8 Plt Count 284 MPV 9.8 Immature Gran % (Auto) 0.300 Neut % (Auto) 58.0 Lymph % (Auto) 32.8 [place] % (Auto) 7.8 Eos % (Auto) 0.4 Baso % (Auto) 0.7 Absolute Neuts (auto) 3.9 Absolute Lymphs (auto) 2.22 Nucleated RBC % 0 Sodium 139 Potassium 3.6 Chloride 106 Carbon Dioxide 24.0 Anion Gap 9 BUN 15 Creatinine 1.17 Estim Creat Clear Calc 58.83 Est GFR (MDRD) Af Amer 87 Est GFR (MDRD) Non-Af 72 BUN/Creatinine Ratio 12.8 Glucose 104 Calcium 9.5 Total Bilirubin 0.70 Direct Bilirubin 0.18 AST 15 ALT 26 Alkaline Phosphatase 65 Total Protein 7.9 Albumin 4.1 Globulin 3.8 Urine Color Yellow Urine Clarity Clear Urine pH 6.0 Ur Specific [place] 1.010 Urine Protein 30 H Urine Glucose (UA) Normal Urine Ketones 150 A* Urine Occult Blood 150 H Urine Nitrite Negative Urine Bilirubin 1 H Urine Urobilinogen 4 H Ur Leukocyte Esterase 100 H Urine RBC 0-5 SEEN Urine WBC 0-5 SEEN Ur Squamous Epith Cells 0 SEEN Urine Bacteria RARE Urine Mucus 3+ Radiography Diagnostic Testing: Clinical Impression(s) from Imaging Studies Abdomen/Pelvis CT 04/20/22 23:22 IMPRESSION: 1. No appendicitis, diverticulitis, colitis, or intestinal obstruction. 2. No cholecystitis or pancreatitis. 3. Normal kidneys without pyelonephritis or mass lesions. 4. Normal liver surrounded by a small amount of fluid laterally and anteriorly. The amount of fluid is slightly increased since previous examination of 02/06/2021. 4. No abscesses, mass lesions, or hernias. Electronically Signed: Inderjit Gauthier MD at 0:42 EDT , Treatment and Re-Evaluation Narrative: CBC and chemistry studies unremarkable. LFTs normal. Urinalysis reveals ketones but no sign of acute infection. CT scan reveals no evidence of diverticulitis or colitis. No obstruction. On repeat evaluation patient is resting more comfortably. He is tolerating p.o. at this time. He will be given a prescription for Zofran and Bentyl. He is to follow a bland diet and slowly advance. If symptoms worsen he is to follow-up with his primary care physician for repeat abdominal exam. Patient voices understanding and agreement. Discharge Plan Triage Chief Complaint: Abd Pain ED Provider: Shannan Larsen Dx/Rx/DC Orders Clinical Impression: Gastroenteritis Instructions: ED Gastroenteritis, Viral (Adult) Prescriptions: New ondansetron 4 mg tablet,disintegrating 4 mg PO Q8H PRN (Reason: nausea and vomiting) Qty: 10 0RF dicyclomine 20 mg tablet 20 mg PO TID PRN (Reason: abdominal cramping) Qty: 14 0RF Primary Care Provider: Care Physician,No Primary Referrals: Samina Wing MD [Med Staff - [employer]] - 1-2 Weeks Care Physician,No Primary [Primary Care Provider] - Disposition Disposition: Home, Self Care
[2022-04-20 23:34] LABS: Squamous Epithelial Cells - UA 0 SEEN /hpf (0-5)
[2022-04-20] MEDS: Morphine 4 MG/ML Syringe IV (23:35)
[2022-04-20] MEDS: 0.9% Normal Saline 1,000 ML 150 ML IV (23:35)
[2022-04-20] MEDS: Ondansetron 4 MG/2 ML Vial IV (23:35)
[2022-04-20 23:36] LABS: Absolute Lymphocyte Count 2.22 X10^3/uL (0.83-4.51); Absolute Neutrophil Count 3.9 X10^3/uL (2.0-7.7); Basophil# 0.05 X10^3/uL; Basophil% 0.7 % (0-1); Eosinophil# 0.03 X10^3/uL; Eosinophils% 0.4 % (0-5); Hematocrit 44.7 % (40-54); Hemoglobin 15.8 g/dL (13.0-16.5); Lymphocyte # 2.22 X10^3/ul (0.83-4.51); Lymphocyte % 32.8 % (19-41); Mean Corp Hgb Conc 35.3 g/dL (32-36); Mean Corpuscular Hgb 32.7 pg (27.0-32.0); Mean Corpuscular Volume 92.5 fL (80-94); Mean Platelet Vol. 9.8 fl (6.2-12.0); Monocyte# 0.53 X10^3/uL; Monocyte% 7.8 % (0-10); NRBC Flagged by Analyzer 0 % (0-5); Neutrophil # 3.91 X10^3/uL (2.7-7.7); Platelet Count 284 K/mm3 (150-450); RBC Distribution Width CV 12.8 % (11.6-14.6); RBC Distribution Width SD 43.6 fl (35.1-43.9); Red Blood Count 4.83 M/mm3 (4.6-6.2); White Blood Count 6.8 K/mm3 (4.4-11.0)
[2022-04-20 23:38] LABS: Glucose, Dipstick Normal (Normal); Leukocyte Esterase-Dipstick 100 /ul (Negative); Nitrite-Dipstick Negative (Negative); Occult Blood-Urine 150 /ul (Negative); Protein-Dipstick 30 mg/dl (Negative); Urine Urobilinogen 4 mg/dl (Normal)
[2022-04-20 23:41] LABS: Color, Urine Yellow (Yellow); Ketone-Dipstick 150 mg/dl (Negative); Urine Bilirubin Dipstick 1 mg/dL (Negative); Urine Clarity Clear (Clear)
[2022-04-20 23:52] LABS: AST(SGOT) 15 U/L (15-37); Alanine Aminotransfer ALT/SGPT 26 U/L (16-61); Albumin, Serum 4.1 g/dL (3.2-5.0); Alkaline Phosphatase 65 U/L (45-117); Anion Gap 9 (5-15); BUN 15 mg/dL (7-18); BUN/Creat Ratio 12.8 RATIO (10-20); Bilirubin, Direct 0.18 mg/dL (0.00-0.30); Calcium,Total 9.5 mg/dL (8.5-10.1); Chloride 106 mmol/L (98-107); Creatinine, Serum 1.17 mg/dL (0.70-1.30); EST Glomerular Filtration Rate 72 mL/min (>60); Est Glom Filt Rate - Afr Amer 87 mL/min (>60); Estimated Creatinine Clearance 58.83 ml/min; Globulin 3.8 g/dL (2.2-4.2); Glucose 104 mg/dL (74-106); Potassium 3.6 mmol/L (3.5-5.1); Protein, Total 7.9 g/dL (6.4-8.2); Sodium Level 139 mmol/L (136-145)
[2022-04-20 23:58] LABS: Bacteria RARE /hpf (None Seen); Mucous, Urine 3+ /hpf (<or=2+); Red Blood Cells-Urine 0-5 SEEN /hpf (0-5); White Blood Cells 0-5 SEEN /hpf (0-5)
== END 2022-04-21 01:44 | disposition home or self-care (01) ==
PROVIDERS: Emergency Provider Emergency Medicine; Visit Provider Emergency Medicine
DX: K52.9 Noninfective gastroenteritis and colitis, unspecified (principal); K64.9 Unspecified hemorrhoids; F12.90 Cannabis use, unspecified, uncomplicated; F17.200 Nicotine dependence, unspecified, uncomplicated
CPT/HCPCS: 74177; 80048; 80076; 81001; 85025; 99282; J7030; Q9967; A4216; J2405

== ENCOUNTER 2022-04-23 00:41 | Emergency (ER) | payer SELFPAY ==
[2022-04-23 00:42] VITALS: BP 105/92; PULSE 89; RESP 18; TEMP 36.3; O2SAT 99; BMI 37.5
--- NOTE | 2022-04-23 01:29 | ED.VIS.GI ---
HPI HPI - GI History of Present Illness Chief Complaint: Abd Pain Informant: patient Narrative Narrative: Patient states he started with some abdominal cramping nausea vomiting and watery diarrhea evening. He got more Sunday afternoon and evening so he came in was seen. Had extensive work-up with blood work and CT. Patient was concerned that he had an episode of colitis. Earlier this year he was diagnosed with colitis on CT. He was given amoxicillin that caused a reaction but then he got an unknown other antibiotic that cleared this up. He has no history of abdominal surgery. No history of Crohn's or ulcerative colitis. When this first started, he had a little bit of blood with wiping but that is gone. He is having watery diarrhea without blood or black. No fevers or chills. Patient request something for anxiety. He states he has a history of anxiety going to my abdomen. A friend of his about 2 weeks ago and he has been having a lot of problems since with anxiety. He is not suicidal homicidal. He is starting to think his abdominal symptoms are related to this. He also does smoke marijuana but denies heavy use. PFSH PFS Medical History Pneumothorax, left Home Medications dicyclomine 20 mg tablet 20 mg PO TID PRN abdominal cramping #14 tabs 04/21/22 [Rx Last Taken Unknown] ondansetron 4 mg disintegrating tablet 4 mg PO Q8H PRN nausea and vomiting #10 tabs 04/21/22 [Rx Last Taken Unknown] hydroxyzine pamoate 25 mg capsule 50 mg PO TID PRN PRN Anxiety #30 caps 04/23/22 [Rx Last Taken Unknown] promethazine 25 mg tablet 25 mg PO TID PRN nausea and vomiting #10 tabs 04/23/22 [Rx Last Taken Unknown] Allergy/AdvReac Type Severity Reaction Status Date / Time amoxicillin AdvReac Upset Verified 04/20/22 23:08 Stomach Family History Father Diabetes Heart disease Hypertension Myocardial infarction Grandfather Diabetes Myocardial infarction Hypertension Heart disease Social History household members: none housing: apartment current occupational status: employed current occupation: [place] Smoking Status: Current some day smoker tobacco type: cigarettes how long ago did patient quit smokin days ago alcohol intake: former substance use type: marijuana what type of physical activity do you participate in: none ROS ROS ED Constitutional Constitutional ED: Denies chills, fever(s) or subjective ENT ENT ED: Denies rhinorrhea or sore throat Cardiovascular Cardiovascular: Denies chest pain or palpitations Respiratory/Chest Respiratory/Chest: Denies cough or dyspnea Gastrointestinal Gastrointestinal: Reports abdominal pain, diarrhea and nausea; Denies constipation, melena or vomiting Genitourinary Genitourinary ED: Denies dysuria or hematuria Musculoskeletal Musculoskeletal: Denies back pain Integumentary Denies rash Neurologic Neurologic: Denies headache(s) or paresthesias Psychiatric Psychiatric: Reports anxiety Endocrine Endocrinology: Denies polydipsia or polyuria Hematologic/Lymphatic Hematologic/Lymphatic: Denies easy bleeding or easy bruising Allergic/Immunologic Allergic/Immunologic ED: Denies urticaria EXAM Physical Exam Const Vital Signs: 04/23/22 00:42 Temperature 97.4 F L Temperature Source Temporal Pulse Rate 89 Respiratory Rate 18 Blood Pressure 105/92 H Blood Pressure Mean 96 Pulse Ox 99 Oxygen Delivery Method Room Air Positive well nourished and well developed General Appearance ED: well developed HEENT Reports moist mucous membranes normocephalic Eyes General Eye ED: Negative for scleral icterus Neck no JVD Resp normal respiratory effort and clear to auscultation bilaterally Cardio regular rate and regular rhythm GI non-tender, non-distended and no masses GI Narrative: Patient points to the periumbilical and infraumbilical/suprapubic area as the area of most of his discomfort. But he talks through the entire exam. There is no sign of tenderness in the area. His bowel sounds are normal. He is not distended. I feel no mass. No rebound or guarding. No hernia. Palpation: soft Back/Spine no CVA tenderness Extremity full ROM Neuro Sensorium / Orientation: alert Psych Attitude: No agitated Mood & Affect: anxious; Negative for depressed or tearful Skin no wounds MDM MDM MDM Narrative Medical decision making narrative: Patient's blood work including CBC, electrolytes, liver function test and lipase are normal. Urine shows some ketones. There are few red and white cells but there is really no convincing evidence of UTI and he is not having dysuria or frequency. I will send this for culture to be certain. Patient's recheck. He looks better. He states he feels really relaxed and his symptoms are markedly better. He thinks this is mostly anxiety. I told him I will send him home with some meds for anxiety. I will try hydroxyzine. Since it is antihistamine it may give some antinausea qualities. I will also write for Phenergan if needed. He will follow-up with his primary physician. Lab Data Attestation: I reviewed the patient's lab results. Labs: Laboratory Results - last 24 hr 04/23/22 04/23/22 04/23/22 01:38 01:38 01:50 WBC 8.1 RBC 4.62 Hgb 14.8 Hct 42.7 MCV 92.4 MCH 32.0 MCHC 34.7 RDW Std Deviation 42.9 RDW Coeff of Nick 12.7 Plt Count 274 MPV 10.0 Immature Gran % (Auto) 0.200 Neut % (Auto) 70.5 H Lymph % (Auto) 21.7 [place] % (Auto) 7.1 Eos % (Auto) 0.1 Baso % (Auto) 0.4 Absolute Neuts (auto) 5.7 Absolute Lymphs (auto) 1.75 Nucleated RBC % 0 Sodium 139 Potassium 3.9 Chloride 106 Carbon Dioxide 24.0 Anion Gap 9 BUN 13 Creatinine 1.10 Estim Creat Clear Calc 84.80 Est GFR (MDRD) Af Amer 93 Est GFR (MDRD) Non-Af 77 BUN/Creatinine Ratio 11.8 Glucose 84 Calcium 9.6 Total Bilirubin 0.60 AST 14 L ALT 21 Alkaline Phosphatase 59 Total Protein 7.3 Albumin 3.9 Globulin 3.4 Albumin/Globulin Ratio 1.1 Lipase 59 L Urine Color Yellow Urine Clarity Clear Urine pH 6.0 Ur Specific [place] 1.020 Urine Protein 15 H Urine Glucose (UA) Normal Urine Ketones 150 A* Urine Occult Blood 50 H Urine Nitrite Negative Urine Bilirubin Negative Urine Urobilinogen Normal Ur Leukocyte Esterase 25 H Urine RBC 5-10 SEEN Urine WBC 5-10 SEEN Ur Squamous Epith Cells 0 SEEN Urine Bacteria 1+ Urine Mucus 3+ Discharge Plan Triage Chief Complaint: Abd Pain ED Provider: Mert Burroughs Dx/Rx/DC Orders Clinical Impression: Abdominal pain, Nausea vomiting and diarrhea, Anxiety Instructions: ED Anxiety Reaction, ED Abdominal Pain Unkn Cause Male... Prescriptions: New promethazine 25 mg tablet 25 mg PO TID PRN (Reason: nausea and vomiting) Qty: 10 0RF hydroxyzine pamoate [hydroxyzine pamoate] 25 mg capsule 50 mg PO TID PRN PRN (Reason: Anxiety) Qty: 30 0RF No Action ondansetron 4 mg tablet,disintegrating 4 mg PO Q8H PRN (Reason: nausea and vomiting) Qty: 10 0RF dicyclomine 20 mg tablet 20 mg PO TID PRN (Reason: abdominal cramping) Qty: 14 0RF Primary Care Provider: Care Physician,No Primary Referrals: Derek Franco MD [Med Staff - Active Staff] - 3-5 Days Care Physician,No Primary [Primary Care Provider] - Disposition Disposition: Home, Self Care
[2022-04-23 01:47] LABS: Absolute Lymphocyte Count 1.75 X10^3/uL (0.83-4.51); Absolute Neutrophil Count 5.7 X10^3/uL (2.0-7.7); Basophil# 0.03 X10^3/uL; Basophil% 0.4 % (0-1); Eosinophil# 0.01 X10^3/uL; Eosinophils% 0.1 % (0-5); Hematocrit 42.7 % (40-54); Hemoglobin 14.8 g/dL (13.0-16.5); Lymphocyte # 1.75 X10^3/ul (0.83-4.51); Lymphocyte % 21.7 % (19-41); Mean Corp Hgb Conc 34.7 g/dL (32-36); Mean Corpuscular Volume 92.4 fL (80-94); Monocyte# 0.57 X10^3/uL; Monocyte% 7.1 % (0-10); NRBC Flagged by Analyzer 0 % (0-5); Neutrophil # 5.68 X10^3/uL (2.7-7.7); Neutrophil % 70.5 % (47-70); Platelet Count 274 K/mm3 (150-450); RBC Distribution Width CV 12.7 % (11.6-14.6); RBC Distribution Width SD 42.9 fl (35.1-43.9); Red Blood Count 4.62 M/mm3 (4.6-6.2); White Blood Count 8.1 K/mm3 (4.4-11.0)
[2022-04-23 01:53] LABS: Squamous Epithelial Cells - UA 0 SEEN /hpf (0-5)
[2022-04-23] MEDS: LORazepam 2 MG/ML Syringe 1 MG IV (01:58)
[2022-04-23] MEDS: 0.9% Normal Saline 1,000 ML 1000 ML IV (01:58)
[2022-04-23] MEDS: Ondansetron 4 MG/2 ML Vial IV (01:58)
[2022-04-23 02:01] LABS: ALB/GLOB Ratio 1.1 RATIO (0.9-2.4); AST(SGOT) 14 U/L (15-37); Alanine Aminotransfer ALT/SGPT 21 U/L (16-61); Albumin, Serum 3.9 g/dL (3.2-5.0); Alkaline Phosphatase 59 U/L (45-117); Anion Gap 9 (5-15); BUN 13 mg/dL (7-18); BUN/Creat Ratio 11.8 RATIO (10-20); Calcium,Total 9.6 mg/dL (8.5-10.1); Chloride 106 mmol/L (98-107); EST Glomerular Filtration Rate 77 mL/min (>60); Est Glom Filt Rate - Afr Amer 93 mL/min (>60); Globulin 3.4 g/dL (2.2-4.2); Glucose 84 mg/dL (74-106); Lipase 59 U/L (73-393); Potassium 3.9 mmol/L (3.5-5.1); Protein, Total 7.3 g/dL (6.4-8.2); Sodium Level 139 mmol/L (136-145)
[2022-04-23 02:06] LABS: Color, Urine Yellow (Yellow); Glucose, Dipstick Normal (Normal); Leukocyte Esterase-Dipstick 25 /ul (Negative); Nitrite-Dipstick Negative (Negative); Occult Blood-Urine 50 /ul (Negative); Protein-Dipstick 15 mg/dl (Negative); Urine Bilirubin Dipstick Negative (Negative); Urine Clarity Clear (Clear); Urine Urobilinogen Normal (Normal)
[2022-04-23 02:08] LABS: Ketone-Dipstick 150 mg/dl (Negative)
[2022-04-23 02:16] LABS: Bacteria 1+ /hpf (None Seen); Mucous, Urine 3+ /hpf (<or=2+); Red Blood Cells-Urine 5-10 SEEN /hpf (0-5); White Blood Cells 5-10 SEEN /hpf (0-5)
[2022-04-23 02:52] VITALS: BP 132/74; PULSE 78; RESP 17; TEMP 36.8; O2SAT 97; O2SAT 98
== END 2022-04-23 02:54 | disposition home or self-care (01) ==
PROVIDERS: Emergency Provider Emergency Medicine; Visit Provider Emergency Medicine
DX: R10.9 Unspecified abdominal pain (principal); F17.200 Nicotine dependence, unspecified, uncomplicated; F12.90 Cannabis use, unspecified, uncomplicated; F41.9 Anxiety disorder, unspecified; R11.2 Nausea with vomiting, unspecified; R19.7 Diarrhea, unspecified
CPT/HCPCS: 80053; 81001; 83690; 85025; 87086; 99283; J7030; A4216; J2405

== ENCOUNTER 2022-07-01 23:00 | Emergency (ER) | payer SELFPAY ==
[2022-07-01 23:01] VITALS: BP 131/93; PULSE 111; RESP 17; TEMP 36.6; O2SAT 100; BMI 19.2
--- NOTE | 2022-07-01 23:12 | RAD_ITS ---
INDICATION: Trauma EXAMINATION/TECHNIQUE: X-RAY - LEFT XR Shoulder Min 2 Views 3 VIEWS COMPARISON: Chest x-rays 03/20/2022. FINDINGS: SOFT TISSUES: No soft tissue swelling or gas. No radiopaque foreign body. BONES/JOINTS: No acute fracture or malalignment. Preservation of the joint space and no degenerative bony proliferative changes. No sclerotic or destructive changes observed. RAD/Shoulder min 2 Views IMPRESSION: Negative. Electronically Signed: Morgan Crooks DO at 23:34 EDT ,
--- NOTE | 2022-07-01 23:19 | EDS_ITS ---
HPI History of Present Illness Chief Complaint: Upper Extremity Injury Informant: patient Narrative Narrative: Patient presents with left shoulder pain. He states he was doing a lot of lifting today. He did not hurt himself then. However, he came home and lifted a dresser because he is moving. He states he got the dresser about prison up and pain in his left shoulder mostly in the front. He is not short of breath. No chest pain. No syncope. No diaphoresis. No nausea vomiting. He states it hurts to move the left shoulder especially trying to lift over his head. No numbness tingling weakness. He is right-hand dominant. [facility] Medical History Pneumothorax, left Home Medications dicyclomine 20 mg tablet 20 mg PO TID PRN abdominal cramping #14 tabs 04/21/22 [Rx Last Taken Unknown] ondansetron 4 mg disintegrating tablet 4 mg PO Q8H PRN nausea and vomiting #10 tabs 04/21/22 [Rx Last Taken Unknown] hydroxyzine pamoate 25 mg capsule 50 mg PO TID PRN PRN Anxiety #30 caps 04/23/22 [Rx Last Taken Unknown] promethazine 25 mg tablet 25 mg PO TID PRN nausea and vomiting #10 tabs 04/23/22 [Rx Last Taken Unknown] Allergy/AdvReac Type Severity Reaction Status Date / Time No Known Allergies Allergy Verified 07/01/22 23:04 Family History Father Diabetes Heart disease Hypertension Myocardial infarction Grandfather Diabetes Myocardial infarction Hypertension Heart disease Social History household members: none housing: apartment current occupational status: employed current occupation: [employer] Smoking Status: Current some day smoker tobacco type: cigarettes how long ago did patient quit smokin days ago alcohol intake: former substance use type: marijuana what type of physical activity do you participate in: none ROS ROS ED Eyes Eyes: Denies change in vision ENT ENT ED: Denies rhinorrhea or sore throat Cardiovascular Cardiovascular: Denies chest pain, palpitations or racing heartbeat Respiratory/Chest Respiratory/Chest: Denies cough or dyspnea Gastrointestinal Gastrointestinal: Denies nausea or vomiting Musculoskeletal Musculoskeletal: Reports myalgias and other Details: See history of present ; Denies neck pain Integumentary Denies rash Neurologic Neurologic: Denies paresthesias or weakness Hematologic/Lymphatic Hematologic/Lymphatic: Denies easy bleeding or easy bruising EXAM Physical Exam Const Vital Signs: 07/01/22 23:01 Temperature 97.8 F Temperature Source Temporal Pulse Rate 111 H Respiratory Rate 17 Blood Pressure 131/93 H Blood Pressure Mean 105 Pulse Ox 100 Oxygen Delivery Method Room Air Positive well nourished and well developed Constitutional Narrative: Patient walked back to the room without difficulty. He did tend to hold his left arm still with the other arm. General Appearance ED: well developed and NAD; Negative for cyanotic or diaphoretic HEENT Reports moist mucous membranes Negative for trauma Neck full ROM and supple Neck Narrative: No cervical spine tenderness. No paraspinal tenderness. Chest Wall inspection of chest normal Chest Narrative: No subcutaneous air or crepitance. He has slight tenderness at the upper portion of the axilla anteriorly. But most of his tenderness is over diffusely around the deltoid. Resp normal respiratory effort and clear to auscultation bilaterally Resp Narrative: No decrease in breath sounds or asymmetry. Auscultation: Negative for rales, rhonchi or wheezes Cardio regular rate and regular rhythm Cardio Narrative: No muffled heart tones. GI non-tender and non-distended Palpation: soft; Negative for tender or guarding Back/Spine no CVA tenderness Extremity Extremity Narrative: Tenderness diffusely around the left deltoid area. No sign of dislocation on exam. AC joint is not notably tender. If I have the patient try to lift his arm overhead this reproduces a lot of his symptoms. No distal pulse deficit. Capillary refill and sensation is normal. Neuro no focal motor deficits and no sensory deficits noted Sensorium / Orientation: alert Psych mental status grossly normal Skin Lesions: no lesions Rashes: no rashes MDM MDM MDM Narrative Medical decision making narrative: X-ray shows no acute process. By history and exam this is most likely muscular injury. We will use ice rest nonsteroidals. I am concerned that if we placed him in a sling he will stay there and may develop significant stiffness. We have encouraged gentle early range of motion. Radiography Diagnostic Testin view x-ray of the patient's left shoulder looked at and read by me shows no sign of acute fracture or dislocation. Visible portions of the lung appear to be normal Discharge Plan Triage Chief Complaint: Upper Extremity Injury ED Provider: Mert Burroughs Dx/Rx/DC Orders Clinical Impression: Left shoulder strain Instructions: ED Shoulder Sprain Prescriptions: No Action ondansetron 4 mg tablet,disintegrating 4 mg PO Q8H PRN (Reason: nausea and vomiting) Qty: 10 0RF dicyclomine 20 mg tablet 20 mg PO TID PRN (Reason: abdominal cramping) Qty: 14 0RF promethazine 25 mg tablet 25 mg PO TID PRN (Reason: nausea and vomiting) Qty: 10 0RF hydroxyzine pamoate [hydroxyzine pamoate] 25 mg capsule 50 mg PO TID PRN PRN (Reason: Anxiety) Qty: 30 0RF Stand Alone Forms: ED Work / School Excuse Primary Care Provider: Derek Franco Referrals: Derek Franco MD [Primary Care Provider] - 3-5 Days if not improving Disposition Disposition: Home, Self Care
== END 2022-07-01 23:44 | disposition home or self-care (01) ==
PROVIDERS: Emergency Provider Emergency Medicine; PCP Internal Medicine; Visit Provider Emergency Medicine
DX: S46.912A Strain of unspecified muscle, fascia and tendon at shoulder and upper arm level, left arm, initial encounter (principal); F17.200 Nicotine dependence, unspecified, uncomplicated; F12.90 Cannabis use, unspecified, uncomplicated; X50.0XXA Overexertion from strenuous movement or load, initial encounter
CPT/HCPCS: 73030; 99282